=== PATIENT | female | born 1985 | race Caucasian/White ===

== ENCOUNTER 2016-09-09 20:46 | Emergency (ER) | payer MEDICAID, OTHER, SELFPAY ==
[2016-09-09] MEDS ORDERED: Meperidine PF 75 MG/ML Syringe IM ONE (22:34)
--- NOTE | 2016-09-09 22:39 | EDM.PDOC ---
ED HPI GENERAL MEDICAL PROBLEM - General Chief Complaint: Lower Extremity Injury/Pain Stated Complaint: RUNNING HURT CALF Time Seen by Provider: 09/09/16 22:37 Source of Information: Reports: Patient, Family History Limitations: Reports: No Limitations - History of Present Illness INITIAL COMMENTS - FREE TEXT/NARRATIVE: pt was running the bases. She felt something pop in the back of her leg--calf and it became swollen and very painful. 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: , Spontaneous Neurological History: Reports: Migraines Endocrine/Metabolic History: Reports: Obesity/BMI 30+ - Infectious Disease History Infectious Disease History: Reports: Chicken Pox - Past Surgical History HEENT Surgical History: Reports: LASIK, Oral Surgery, Other (See Below) Other HEENT Surgeries/Procedures: Deviated septum surgery GI Surgical History: Reports: Appendectomy Social & Family History - Family History Family Medical History: Noncontributory - Tobacco Use Smoking Status *Q: Never Smoker Second Hand Smoke Exposure: No - Caffeine Use Caffeine Use: Reports: Coffee - Alcohol Use Days Per Week of Alcohol Use: 1 Number of Drinks Per Day: 1 Total Drinks Per Week: 1 - Recreational Drug Use Recreational Drug Use: No Review of Systems - Review of Systems Review Of Systems: See Below Constitutional: Reports: No Symptoms Eyes: Reports: No Symptoms Ears: Reports: No Symptoms Nose: Reports: No Symptoms Mouth/Throat: Reports: No Symptoms Respiratory: Reports: No Symptoms Cardiovascular: Reports: No Symptoms GI/Abdominal: Reports: No Symptoms Genitourinary: Reports: No Symptoms Musculoskeletal: Reports: Other ( pain in the calf of the left leg. ) ED EXAM, GENERAL - Physical Exam Exam: See Below Free Text/Narrative:: pt is having severe pain in the left mid calf. This came on suddenly whn she was running. Exam Limited By: No Limitations General Appearance: Alert, Anxious, Severe Distress Ears: Normal TMs Nose: Normal Inspection Throat/Mouth: Normal Inspection Head: Atraumatic Neck: Normal Inspection Respiratory/Chest: No Respiratory Distress Cardiovascular: Regular Rate, Rhythm Extremities: Other ( left calf is tight swollen and very tender. ) Course - Vital Signs Last Recorded V/S: Last Vital Signs Temp 36 C 09/10/16 01:04 Pulse 90 09/10/16 01:04 Resp 15 09/10/16 01:04 BP 125/72 09/10/16 01:04 Pulse Ox 97 09/10/16 01:04 - Orders/Labs/Meds Orders: Active Orders 24 hr Category Date Time Status Extremity Non Vascular Lt [US] Stat Exams 09/09/16 22:35 Taken Meds: Medications Discontinued Medications Generic Name Dose Route Start Last Admin Trade Name Freq PRN Reason Stop Dose Admin Ketorolac Tromethamine 60 mg 09/10/16 00:21 09/10/16 00:24 Toradol IM 09/10/16 00:22 60 mg ONETIME ONE Administration Meperidine HCl 75 mg 09/09/16 22:34 09/09/16 22:57 Demerol IM 09/09/16 22:35 75 mg ONETIME ONE Administration Ondansetron HCl 4 mg 09/09/16 23:26 09/09/16 23:32 Zofran Odt PO 09/09/16 23:27 4 mg ONETIME ONE Administration - Re-Assessments/Exams Free Text/Narrative Re-Assessment/Exam: 09/10/16 01:01 US was obtained which showed a probable muscle tear and a pool of fluid in the calf. Departure - Departure Time of Disposition: 01:02 Disposition: Home, Self-Care 01 Condition: Fair Clinical Impression: Muscle tear, Hematoma of left lower extremity - Discharge Information Referrals: Courtney Powell PA [Primary Care Provider] - Forms: ED Department Discharge Care Plan Goals: elevat,e cool pack, motrin 600mg tid, percocet 5/325 q6h prn for pain, appt with Dr Rosetta Jernigan Tuesday or Tuesday. crutches - My Orders Last 24 Hours: My Active Orders 09/09/16 22:35 Extremity Non Vascular Lt [US] Stat - Assessment/Plan Last 24 Hours: My Active Orders 09/09/16 22:35 Extremity Non Vascular Lt [US] Stat
[2016-09-09] MEDS ORDERED: Ondansetron 4 MG Tab.DIS PO ONE (23:26)
[2016-09-10] MEDS ORDERED: Ketorolac 60 MG/2 ML SDV IM ONE (00:21)
[2016-09-10 01:07] VITALS: BP 125/72
== END 2016-09-10 01:35 | disposition home or self-care (01) ==
LOC: JP.ED 20:46
DX: S86.912A Strain of unspecified muscle(s) and tendon(s) at lower leg level, left leg, initial encounter (principal); S80.12XA Contusion of left lower leg, initial encounter; J45.909 Unspecified asthma, uncomplicated; G43.909 Migraine, unspecified, not intractable, without status migrainosus; E66.9 Obesity, unspecified; Z90.49 Acquired absence of other specified parts of digestive tract; Z98.890 Other specified postprocedural states; X58.XXXA Exposure to other specified factors, initial encounter; Y93.02 Activity, running
CPT/HCPCS: 76881; 96372; 99284; A9270; J1885; J2175; 99283

== ENCOUNTER 2022-02-22 08:06 | Day surgery (SDC) | payer MEDICAID ==
[~2022-02-22 08:06] MED LIST: Bacitracin Oint 1 GM U/D Packet ONE; Bupivacaine 0.5% 30 ML SDV ONE; Lidocaine 1% 50 ML MDV ONE; Lidocaine 1% with EPINEPHrine 1:100,000 50 ML MDV ONE
[2022-02-22] MEDS ORDERED: Acetaminophen 500 MG Tab PO ONE (08:15)
[2022-02-22] MEDS ORDERED: Dextrose 5%-Lactated Ringers 1,000 ML IV SCH (09:00)
[2022-02-22] MEDS ORDERED: ceFAZolin 2 GM in Sodium Chloride 0.9% 100 ML IV ONE (09:15)
[2022-02-22] MEDS ORDERED: ceFAZolin 2 GM in Sodium Chloride 0.9% 50 ML IV ONE (09:15)
[2022-02-22] MEDS ORDERED: Midazolam 1 MG/ML 2 ML SDV ONE (10:26)
[2022-02-22] MEDS ORDERED: Propofol 200 MG/20 ML SDV ONE (10:26)
[2022-02-22] MEDS ORDERED: fentaNYL 100 MCG/2 ML SDV ONE (10:26)
[2022-02-22] MEDS: Potassium Chloride 10 MEQ in Premix Bag 1 BAG IV SCH ×2 (10:31→11:29)
[2022-02-22] MEDS ORDERED: Scopolamine 1.5 MG Transdermal Patch TOP ONE ×2 (11:15→11:16)
[2022-02-22] MEDS ORDERED: Ondansetron 4 MG/2 ML SDV ONE (12:24)
[2022-02-22] MEDS ORDERED: Dexamethasone 4 MG/ML SDV ONE (12:24)
[2022-02-22] MEDS ORDERED: Bupivacaine 0.5%/EPINEPHrine 1:200,000 50 ML MDV ONE (12:40)
[2022-02-22 14:35] VITALS: BP 103/68; PULSE 68
== END 2022-02-22 14:44 | disposition home or self-care (01) ==
LOC: JP.SDS 08:06
PROVIDERS: ATTEND Surgery
DX: D23.39 Other benign neoplasm of skin of other parts of face (principal); J45.909 Unspecified asthma, uncomplicated; Z88.2 Allergy status to sulfonamides; Z88.5 Allergy status to narcotic agent; Z79.899 Other long term (current) drug therapy; Z98.890 Other specified postprocedural states; Z90.49 Acquired absence of other specified parts of digestive tract; Z87.891 Personal history of nicotine dependence; Z68.33 Body mass index [BMI] 33.0-33.9, adult
CPT/HCPCS: 11401; 12051; 36415; 80048; 81025; 85027; 88305; A9270; J1100; J2250; J2405; J2704; J3010; J3480; J3490; J7121; J2001